=== PATIENT | male | born 1950 | race Caucasian/White ===

== ENCOUNTER 2022-09-21 12:12 | Emergency (ER) | payer MEDICARE, OTHER ==
--- NOTE | 2022-09-21 14:26 | ED Physician Documentation ---
History of Present Illness - Stated complaint Stated Complaint: HIGH BP - Chief complaint Chief Complaint: Cardiac - History obtained from History obtained from: Patient, Family - History of Present Illness Timing: Chronic Pain level max: 0 Pain level now: 0 - Additonal information Additional information: 71-year-old male presents to the emergency department stating that he has noticed that his blood pressure has been trending higher over the past several weeks. He is normally maintained on losartan 12.5 mg p.o. daily. He recently started taking 25 mg p.o. daily. Has a history of anxiety and has anxiety medication but does not take it. He has had no chest pain. No shortness of breath. No headache. No visual changes. No focal neurological deficits. He states he takes his blood pressure 4-5 times per day. He states he called his doctor's office today for an appointment and they directed him here. Patient is asymptomatic. Patient states that he is a regular swimmer, he swam about 3000 m yesterday, no chest pain. No shortness of breath. No fatigue. Review of Systems Constitutional: denies: Fever, Chills Nose: denies: Rhinorrhea / runny nose, Congestion Throat: denies: Sore throat Cardiac: denies: Chest pain / pressure, Palpitations Respiratory: denies: Dyspnea, Cough GI: denies: Nausea, Vomiting, Diarrhea : denies: Dysuria Skin: denies: Rash Musculoskeletal: denies: Neck pain, Back pain Neurologic: denies: Headache PD PAST MEDICAL HISTORY - Past Medical History Past Medical History: Yes Cardiovascular: Hypertension, High cholesterol - Allergies Allergies/Adverse Reactions: Allergies Allergy/AdvReac Type Severity Reaction Status Date / Time No Known Drug Allergies Allergy Verified 09/21/22 12:24 - Living Situation Living Situation: reports: With family Living Arrangement: reports: At home PD ED PE NORMAL - Vitals Vital signs reviewed: Yes - General General: Alert and oriented X 3, No acute distress, Well developed/nourished - HEENT HEENT: PERRL, Moist mucous membranes - Neck Neck: Supple, no meningeal sign - Cardiac Cardiac: RRR, Strong equal pulses - Respiratory Respiratory: No respiratory distress, Clear bilaterally - Abdomen Abdomen: Soft, Non tender, Non distended - Derm Derm: Warm and dry, No rash - Extremities Extremities: No edema, No calf tenderness / cord - Neuro Neuro: Alert and oriented X 3, 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, No motor deficit, No sensory deficit, Normal speech Eye Opening: Spontaneous Motor: Obeys Commands Verbal: Oriented GCS Score: 15 - Psych Psych: Normal mood, Normal affect Results - Vitals Vitals: Vital Signs - 24 hr 09/21/22 09/21/22 09/21/22 12:20 12:24 14:24 Temperature 36.0 C L 36.5 C 36.5 C Heart Rate 60 60 50 L Respiratory 16 16 14 Rate Blood Pressure 192/91 H 192/91 H 170/97 H O2 Saturation 99 99 100 Oxygen O2 Source Room air - EKG (time done) 1227 Rate: Rate (enter#) (52) Rhythm: NSR [place]: Normal Intervals: Normal [place] QRS: Normal Ischemia: Normal ST segments PD Medical Decision Making - ED course Complexity details: reviewed results, considered differential, d/w patient ED course: In accordance with the [facility] clinical policy from October 2012, this patient has asymptomatic elevated blood pressure without evidence of acute target organ injury. There are also no signs of acute stroke, cardiac ischemia, pulmonary edema, encephalopathy or acute congestive heart failure. Therefore the patient will be referred to their primary care provider for follow-up of their asymptomatic hypertension. Patient counseled regarding signs and symptoms for which I believe and urgent re-evaluation would be necessary. Patient with good understanding of and agreement to plan and is comfortable going home at this time This document was made in part using voice recognition software. While efforts are made to proofread this document, sound alike and grammatical errors may occur. Departure - Departure Disposition: 01 Home, Self Care Clinical Impression: Hypertension Qualifiers: Hypertension type: unspecified Qualified Code(s): I10 - Essential (primary) hypertension Condition: Good Instructions: ED HTN Established Follow-Up: Harsh Galindo MD [Primary Care Provider] - Within 1 week Comments: Please follow-up with your doctor for further care. Please return if you develop chest pain, shortness of breath, focal numbness, tingling or weakness of an extremity or face. Vision changes. Or any other new or worrisome symptoms. Please check your blood pressure a few times per week and keep a log so that your doctor can adjust your medication. Discharge Date/Time: 09/21/22 14:29
[2022-09-21 14:29] VITALS: BP 170/97
== END 2022-09-21 14:29 | disposition home or self-care (01) ==
LOC: ED 12:12
DX: I10 Essential (primary) hypertension (principal)
CPT/HCPCS: 93005; 99283

== ENCOUNTER 2023-07-19 18:54 | Emergency (ER) | payer MEDICARE, OTHER ==
[2023-07-19 19:12] VITALS: O2SAT 99
[2023-07-19 19:25] LABS: BASOPHILS % (AUTO) 0.5 %; EOSINOPHILS # (AUTO) 0.1 10^3/uL (0.0-0.7); EOSINOPHILS % (AUTO) 2.4 %; HCT - HEMATOCRIT 44.8 % (42.0-52.0); HGB - HEMOGLOBIN 14.9 g/dL (14.0-18.0); LYMPHOCYTES # (AUTO) 1.5 10^3/uL (1.5-3.5); LYMPHOCYTES % (AUTO) 26.7 %; MEAN CORPUSCULAR HEMOGLOBIN 30.8 pg (27.0-31.0); MEAN CORPUSCULAR HGB CONC 33.3 g/dL (32.0-36.0); MEAN CORPUSCULAR VOLUME 92.6 fL (80.0-94.0); MEAN PLATELET VOLUME 9.9 fL (7.4-11.4); MONOCYTES # (AUTO) 0.8 10^3/uL (0.0-1.0); MONOCYTES % (AUTO) 13.6 %; NEUTROPHILS # (AUTO) 3.2 10^3/uL (1.5-6.6); NEUTROPHILS % (AUTO) 56.6 %; PLT - PLATELET COUNT 217 10^3/uL (130-450); RED BLOOD COUNT 4.84 10^6/uL (4.70-6.10); RED CELL DISTRIBUTION WIDTH 13.1 % (12.0-15.0); WHITE BLOOD COUNT 5.7 x10^3/uL (4.8-10.8)
--- NOTE | 2023-07-19 19:31 | ED Physician Documentation ---
PD HPI CHEST PAIN - Stated complaint Stated Complaint: HEART PALPITATIONS/HBP - Chief complaint Chief Complaint: Cardiac - History obtained from History obtained from: Patient - Additional information Additional information: 72-year-old gentleman with history of hypertension on a low-dose of losartan and also a statin. Otherwise quite healthy with no history of heart problems. Since yesterday has had intermittent painless palpitations. Every few beats he feels like his heart skips a beat. He does drink alcohol, maybe for it beers nightly and drinks about 2 cups of coffee a day. No history of arrhythmias. No shortness of breath or chest pain. PD PAST MEDICAL HISTORY - Past Medical History Past Medical History: Yes Cardiovascular: Hypertension, High cholesterol - Past Surgical History Past Surgical History: No - Present Medications Home Medications: Ambulatory Orders Medication Instructions Recorded Confirmed No Known Home Medications 07/19/23 07/19/23 - Allergies Allergies/Adverse Reactions: Allergies Allergy/AdvReac Type Severity Reaction Status Date / Time No Known Drug Allergies Allergy Verified 09/21/22 12:24 - Social History Does the pt smoke?: No Smoking Status: Never smoker PD ED PE NORMAL - Vitals Vital signs reviewed: Yes - General General: Alert and oriented X 3, No acute distress - Cardiac Cardiac: RRR (Occasional extrasystoles no murmur) - Respiratory Respiratory: No respiratory distress, Clear bilaterally - Abdomen Abdomen: Non tender - Extremities Extremities: No edema, No calf tenderness / cord - Neuro Neuro: Alert and oriented X 3, Normal speech Results - Vitals Vitals: Vital Signs - 24 hr 07/19/23 07/19/23 07/19/23 19:06 20:10 20:14 Temperature 36.6 C 36.5 C 36.1 C L Heart Rate 63 67 56 L Respiratory 18 15 10 L Rate Blood Pressure 184/98 H 177/88 H 180/99 H O2 Saturation 99 100 99 Oxygen O2 Source Room air - EKG (time done) 190 EKG releavant findings:: EKG personally interpreted by author of this note. Relevant findings are: Rate: Rate (enter#) (68) Rhythm: Other (Ectopic atrial rhythm with abnormal P axis and occasional PVCs) Intervals: Normal [place] QRS: Normal Ischemia: Normal ST segments Compare to prior EKG: Changed from prior EKG (Compared with September 21 of this year, increased PVCs, otherwise no change.) Computer interpretation: Agree with computer - Labs Labs: Laboratory Tests 07/19/23 07/19/23 19:17 19:17 WBC 5.7 RBC 4.84 Hgb 14.9 Hct 44.8 MCV 92.6 MCH 30.8 MCHC 33.3 RDW 13.1 Plt Count 217 MPV 9.9 Neut # (Auto) 3.2 Lymph # (Auto) 1.5 [place] # (Auto) 0.8 Eos # (Auto) 0.1 Baso # (Auto) 0.0 Absolute Nucleated RBC 0.00 Nucleated RBC % 0.0 Sodium 139 Potassium 3.6 Chloride 105 Carbon Dioxide 23 Anion Gap 11.0 BUN 22 H Creatinine 1.1 Estimated GFR (MDRD) 66 L Glucose 120 H Calcium 9.0 Magnesium 1.8 Troponin I High Sens 5.0 PD Medical Decision Making - ED course ED course: 72-year-old gentleman with symptomatic PVCs. No evidence of ischemia and his EKG is otherwise unchanged from earlier this year. Work-up shows normal CBC and BMP save low normal potassium which was repleted orally as that may increase PVCs. He was generally reassured but close follow-up advised. Departure - Departure Disposition: 01 Home, Self Care Clinical Impression: PVCs (premature ventricular contractions) Condition: Good Instructions: ED Palpitations Comments: You were seen tonight for premature ventricular contractions. No other concerning findings were found other than a mildly low potassium level. Follow- up with Dr. Galindo, he may consider cardiology consultation and/or echocardiography. Return for new or worsening symptoms. Forms: PCP List Discharge Date/Time: 07/19/23 20:14
[2023-07-19 19:42] LABS: CREATININE 1.1 mg/dL (0.6-1.3); MAGNESIUM 1.8 mg/dL (1.7-2.3); POTASSIUM 3.6 mmol/L (3.5-4.5)
[2023-07-19] MEDS ORDERED: POTASSIUM BICARB 25 MEQ TABLET PO STA (19:51)
[2023-07-19 20:16] VITALS: BP 180/99
== END 2023-07-19 20:14 | disposition home or self-care (01) ==
LOC: ED 18:54
DX: I49.3 Ventricular premature depolarization (principal); I10 Essential (primary) hypertension; E78.00 Pure hypercholesterolemia, unspecified
CPT/HCPCS: 36415; 80048; 83735; 84484; 85025; 93005; 99284; A9270